=== PATIENT | female | born 1930 | race Caucasian/White ===

== ENCOUNTER 2018-11-13 19:50 | Emergency (ER) | payer OTHER ==
[~2018-11-13] VITALS: Ht 154.9 cm; Wt 59.0 kg
[2018-11-13] MEDS ORDERED: ALLOPURINOL 10100 M1 PO (20:18)
[2018-11-13] MEDS ORDERED: LIPITOR 20 MG T20 M1 PO (20:18)
[2018-11-13] MEDS ORDERED: AMLODIPINE BESY10 MG PO (20:18)
[2018-11-13 20:19] LABS: URINE BILIRUBIN NEGATIVE (Negative); URINE BLOOD NEGATIVE (Negative); URINE CLARITY CLEAR; URINE COLOR YELLOW; URINE GLUCOSE-RANDOM* NEGATIVE (Negative); URINE KETONES NEGATIVE (Negative); URINE LEUKOCYTES-REFLEX NEGATIVE (Negative); URINE NITRITE-REFLEX NEGATIVE (Negative); URINE PROTEIN (DIPSTICK) NEGATIVE (Negative); URINE UROBILINOGEN 0.2 E.U./dl (0.2-1.0)
[2018-11-13] MEDS ORDERED: CALCIUM 600 +1 EAC1 PO (20:19)
[2018-11-13] MEDS ORDERED: BUSPIRONE HCL10 MG PO (20:19)
[2018-11-13] MEDS ORDERED: COZAAR 25 MG TA25 M2 PO (20:20)
[2018-11-13] MEDS ORDERED: MELATONIN3 MG PO (20:20)
[2018-11-13] MEDS ORDERED: LORATIDINE 10 M10 M1 PO (20:20)
[2018-11-13] MEDS ORDERED: SYNTHROID25 MC1 PO (20:20)
[2018-11-13] MEDS ORDERED: CENTRUM SILVER1 EAC4 PO (20:21)
[2018-11-13] MEDS ORDERED: OXCARBAZEPINE300 MG PO (20:21)
[2018-11-13] MEDS ORDERED: TYLENOL325 MG PO (20:21)
[2018-11-13 20:50] LABS: ABSOLUTE NEUTROPHILS 5.8 thou/uL (1.4-8.2); BASOPHILS 0.9 % (0.0-2.0); HEMATOCRIT 40.8 % (37.0-47.0); HEMOGLOBIN 14.1 gm/dL (12.0-15.0); LYMPHOCYTES 13.3 % (24.0-44.0); MCH 34.2 pg (26.0-34.0); MCHC 34.7 g/dL (28.0-37.0); MCV 98.6 fL (80.0-100.0); MONOCYTES 6.5 % (1.0-8.0); PLATELET COUNT 181 thou/uL (150-400); POLYS 78.3 % (36.0-66.0); RBC 4.14 mil/uL (4.20-5.00); RDW 12.8 % (10.5-14.5); WBC 7.4 thou/uL (4.0-11.0)
[2018-11-13 20:55] LABS: CALCIUM 9.5 mg/dL (8.5-10.1); CREATININE 0.6 mg/dL (0.6-1.0)
[2018-11-13 21:00] LABS: ALBUMIN 3.7 g/dL (3.4-5.0); TOTAL BILIRUBIN 0.3 mg/dL (<0.1-1.0); TOTAL PROTEIN 6.7 g/dL (6.4-8.2)
[2018-11-13 21:02] LABS: TROPONIN-I <0.06 ng/mL (<0.06)
[2018-11-13] MEDS ORDERED: FLOMAX0.4 MG PO (21:12)
[2018-11-13] MEDS ORDERED: ZOFRAN ODT4 MG DISSOLVE (21:12)
[2018-11-13] MEDS ORDERED: TORADOL 10 MG T10 MG PO (21:12)
[2018-11-13] MEDS ORDERED: ZOFRAN ODT4 MG PO (22:00)
[2018-11-13] MEDS ORDERED: COLACE100 MG PO (22:00)
[2018-11-13] MEDS ORDERED: NORCO 5-325 TA1 EAC1 PO (22:02)
[2018-11-13 22:24] VITALS: BP 160/72
--- NOTE | 2018-11-13 23:35 | EKG ---
[place] [address] [facility] [place] [address] ELECTROCARDIOGRAM REPORT Name: LUISJESÚS Room #: [facility] Joaquin#: [id number] ������������������ Admission: 11/13/18 ������������������ Attend Phys: Discharge: 11/13/18 ������������������ Date of : 32 Report #: [id number] ����������������������������������������������������������������� [id number] THIS REPORT FOR: //name// [facility] ED Test Date: 2018-11-13 Test Time: 20:43:53 Pat Name: JESÚS SMITH Department: Room: Gender: F Field Support Representative: MEAGHAN : 1930 Requested By: Kaity Bustillo Order Number: [id number] MD: Tal Cruz Measurements Intervals [place] Rate: 66 P: 4 NH: 167 QRS: 9 QRSD: 100 T: 31 QT: 447 QTc: 469 Interpretive Statements Atrial-paced complexes Low voltage, extremity leads Borderline prolonged QT interval No previous ECG available for comparison Electronically Signed On 11-13-2018 23:35:10 CDT by Tal Cruz [email or web address] ��������������������������������������������� <ELECTRONICALLY SIGNED> ���������������������������������������� By: Tal Cruz MD ��������������������������������������������� 11/13/18 2335 2043 42 Tal Cruz MD /NIC
== END 2018-11-13 22:25 | disposition home or self-care (01) ==
LOC: ER 19:50
PROVIDERS: Physician Assistant
DX: K80.20 Calculus of gallbladder without cholecystitis without obstruction (principal); I10 Essential (primary) hypertension; E78.5 Hyperlipidemia, unspecified; E03.9 Hypothyroidism, unspecified; M19.90 Unspecified osteoarthritis, unspecified site; E78.00 Pure hypercholesterolemia, unspecified

== ENCOUNTER 2021-01-26 18:08 | Inpatient (IN) | payer OTHER ==
[~2021-01-26] VITALS: Ht 157.5 cm; Wt 48.6 kg
--- NOTE | ~2021-01-26 | EMS ---
[address] [address] EMS Patient Care Report Name: JESÚS SMITH Room #: 446-P ADM IN M.R.#: [id number] Admission: 01/26/21 Attend Phys: Swapna Orellana MD Discharge: Date of : 31 Report #: [id number] THIS REPORT FOR: //name// Report Transmitted: 01/27/2021 08:51 EMS Care Summary [place], [place]/[facility] Incident [id number] @ 01/26/2021 17:31 Incident Location [address] [place] [address] [address] Patient JESÚS SMITH Female, 89 Years [id number] Patient Address Patient History Chronic Obstructive Pulmonary Disease (COPD),Epilepsy,Hypertension (HTN),Hyperlipidemia,Diverticulitis,Idiopathic Pulmonary Fibrosis (IPF), Patient Allergies No known allergies, Patient Medications Losartan, Loratadine, Amlodipine, Trileptal, Levothyroxine, Allopurinol, Buspirone, Chief Complaint Back Pain Disposition Transported No Lights/[place] Dispatch Reason Back Pain (Non-Traumatic) Transported To [facility] Narrative Arrived on scene to find our patient laying in bed in her apartment in the fdc home. long term staff reported that the patient did have chronic back pain, but on this day she had been unable get up and walk/move around on her own which was extremely unusual for her. long term staff also stated [address] [address] EMS Patient Care Report Name: JESÚS SMITH Room #: 446-[facility] IN ..#: [id number] Admission: 01/26/21 Attend Phys: Swapna Orellana MD Discharge: Date of : 31 Report #: [id number] that the patient had an acute change in mental status with the chronic back pain. The [place] staff seemed to be equally concerned with the AMS and change in back pain. I spoke with the patient's adult daughter who was on scene, the patient's daughter appeared to be significantly more concerned about the patient's back pain than her AMS. Patient was alert to name, but had a significantly altered mental status that she did not know where she was, or why she was being seen my EMS. Patient had no gross trauma or bleeding. Vital signs obtained and patient transported and transferred to receiving facility without change in patient condition. Initial Vitals @18:00P: 102,BP: 184/109,SpO2: 94, @18:01P: 107,BP: 198/96, @18:00P: 100,R: 16,BP: 185/91,GCS: 14,Glucose: 94,CO: 0,SpO2: 94,Revised Trauma: 12, @18:02P: 113,R: 16,BP: 194/108,GCS: 14,SpO2: 96,Revised Trauma: 12, Assessments @17:48MENTAL:Person Oriented,Confused,SKIN:HEENT:Head/Face: No Abnormalities,Neck/Airway: No Abnormalities,LUNG SOUNDS:General: No Abnormalities,ABDOMEN:General: No Abnormalities,PELVIS//GI:No Abnormalities,EXTREMITIES:Left Arm: No Abnormalities,Right Arm: No Abnormalities,Left Leg: No Abnormalities,Right Leg: No Abnormalities,PULSE:NEURO:No Abnormalities, Impression Altered Mental Status Procedures @17:48ALS AssessmentResponse: UnchangedSucceeded Timeline 17:28,Call Received 17:28,Dispatch Notified 17:31,Dispatched 17:31,En Route 17:43,On Scene 17:48,At Patient 17:48,ALS Assessment,Response: UnchangedSucceeded, 17:59,Depart Scene 18:00,BP: 185/91 M,PULSE: 100,RR: 16 R,SPO2: 94 Ox,ETCO2: ,B,PAIN: ,GCS: 14, 18:00,BP: 184/109 M,PULSE: 102,RR: R,SPO2: 94 Ox,ETCO2: ,BG: ,PAIN: ,GCS: , 18:01,BP: 198/96 M,PULSE: 107,RR: R,SPO2: Ox,ETCO2: ,BG: ,PAIN: ,GCS: , 18:02,BP: 194/108 M,PULSE: 113,RR: 16 R,SPO2: 96 Ox,ETCO2: ,BG: ,PAIN: ,GCS: 14, [address] [address] EMS Patient Care Report Name: JESÚS SMITH Room #: 446-P ADM IN M.R.#: [id number] Admission: 01/26/21 Attend Phys: Swapna Orellana MD Discharge: Date of : 31 Report #: [id number] 18:05,At Destination 18:20,Call Closed Disclaimer v1.1 Copyright 2020 [employer] This EMS Care Summary contains data elements from the applicable legal record (which may be displayed differently). It is designed to provide pertinent information for the following purposes: continuity of care, clinical quality, and state data reporting. The complete legal record is available to ED staff and administrators of the receiving hospital in [employer] Patient Tracker. All data is provided "as is."
[2021-01-26 18:08] VITALS: BP 199/90
[~2021-01-26 18:08] MED LIST: ALLOPURINOL 10100 M1 PO; AMLODIPINE BESY10 MG PO; BUSPIRONE HCL10 MG PO; CALCIUM 600 +1 EAC1 PO; CENTRUM SILVER1 EAC4 PO; COLACE100 MG PO; COZAAR 25 MG TA25 M2 PO; FLOMAX0.4 MG PO; LIPITOR 20 MG T20 M1 PO; LORATIDINE 10 M10 M1 PO; MELATONIN3 MG PO; NORCO 5-325 TA1 EAC1 PO; OXCARBAZEPINE300 MG PO; SYNTHROID25 MC1 PO; TORADOL 10 MG T10 MG PO; TYLENOL325 MG PO; ZOFRAN ODT4 MG DISSOLVE; ZOFRAN ODT4 MG PO
[2021-01-26] MEDS ORDERED: LIDODERM1 EACH TOP (19:36)
[2021-01-26 20:45] LABS: ABSOLUTE NEUTROPHILS 4.1 thou/uL (1.4-8.2); EOSINOPHILS 3.2 % (0.0-3.0); HEMOGLOBIN 14.6 gm/dL (12.0-15.0); LYMPHOCYTES 15.1 % (24.0-44.0); MCH 33.2 pg (26.0-34.0); MCHC 33.9 g/dL (28.0-37.0); MCV 97.9 fL (80.0-100.0); MONOCYTES 12.9 % (1.0-8.0); PLATELET COUNT 229 thou/uL (150-400); POLYS 67.8 % (36.0-66.0); RBC 4.39 mil/uL (4.20-5.00); RDW 13.4 % (10.5-14.5); WBC 6.1 thou/uL (4.0-11.0)
[2021-01-26 20:46] LABS: CALCIUM 8.7 mg/dL (8.5-10.1); CREATININE 0.5 mg/dL (0.6-1.0)
[2021-01-26 20:47] LABS: POTASSIUM 4.4 mmol/L (3.5-5.1)
[2021-01-26 21:02] LABS: URINE BILIRUBIN NEGATIVE (Negative); URINE BLOOD NEGATIVE (Negative); URINE CLARITY CLEAR; URINE COLOR YELLOW; URINE GLUCOSE-RANDOM* NEGATIVE (Negative); URINE KETONES NEGATIVE (Negative); URINE LEUKOCYTES-REFLEX NEGATIVE (Negative); URINE NITRITE-REFLEX NEGATIVE (Negative); URINE PROTEIN (DIPSTICK) NEGATIVE (Negative)
[2021-01-26 21:28] VITALS: BP 158/59
[2021-01-26 22:54] VITALS: BP 195/84
[2021-01-27 04:53] VITALS: BP 196/80
[2021-01-27 06:00] LABS: CALCIUM 8.5 mg/dL (8.5-10.1); CREATININE 0.5 mg/dL (0.6-1.0)
[2021-01-27 06:05] LABS: POTASSIUM 3.4 mmol/L (3.5-5.1)
--- NOTE | 2021-01-27 06:09 | NUR ---
RECEIVED CARE OF THIS PATIENT AT 2240 FROM ED. ARRIVED ON UNIT VIA CART ACCOMPANIED BY ED PERSONEL AND SON. PATIENT ALERT AND ORIENTED TO SELF ONLY. IN WITH BACKPAIN BUT DENIES PAIN THIS SHIFT. PULLED IV OUT, REPLACED AND WRAPPED WITH A PROTECTIVE WRAP. SLEPT MOST OF NIGHT.
[2021-01-27 07:37] VITALS: BP 182/89
--- NOTE | 2021-01-27 15:13 | NUR ---
A/O X 1 SELF. ONE ASSIST WITH TRASFERS AND ADLS. HARD OF HEARING. INCONT OF B/B. WEARS PULL UP. RIGHT WRIST IV SALINE LOCKED. NORCO FOR BACK PAIN PRN. FAMILY AT BEDSIDE. MRI SET FOR TOMORROW
--- NOTE | 2021-01-27 15:37 | EKG ---
[address] [employer] [place] [address] ELECTROCARDIOGRAM REPORT Name: JESÚS SMITH Room #: 446- ADM IN M.R.#: [id number] Admission: 01/26/21 Attend Phys: Swapna Orellana MD Discharge: Date of : 31 Report #: [id number] [facility] Test Date: 2021-01-27 Test Time: 15:33:08 Pat Name: JESÚS SMITH Department: Room: 446 Gender: F Review Appraiser: FSCHWALPEGGY : 1930 Requested By: Kathy Yoder Order Number: [id number] MD: Marlo Andrew Measurements Intervals [place] Rate: 70 P: -33 FL: 175 QRS: -6 QRSD: 110 T: 1 QT: 401 QTc: 433 Interpretive Statements Sinus rhythm Inferior infarct, old Compared to ECG 11/13/2018 20:43:53 Myocardial infarct finding now present Atrial-paced complex(es) or rhythm no longer present Electronically Signed On 01-27-2021 15:37:31 CDT by Marlo Andrew [email or web address] <ELECTRONICALLY SIGNED> By: Marlo Andrew MD, [facility] 01/27/21 1537 [id number] 153 Marlo Andrew MD, [facility] /EPI
--- NOTE | 2021-01-27 15:43 | NUR ---
ASSESSMENT: CM REVIEWED CHART AND SPOKE WITH PT. PT IS FROM [facility] AND WAS ADMITTED DUE TO INCREASED BACK PAIN. PER FACILITY THEY DO NO FEEL PATIENT HAS FALLEN OR ARE UNAWARE IF SHE HAS. PT IS FROM [facility]. CM FAXED UPDATED CLINICAL TO [facility]. CM SPOKE WITH PTS RN AT [facility] WHO REPORTS PT NORMALLY AMBULATES WITH A WALKER. CM SPOKE WITH PATIENT AND HER DAUGHTER KARLEY. NEUROSURGERY IS ON THE CASE AND ORTHO. AWAITING MRI TO SEE IF FXS ARE ACUTE. PT MAY REQUIRE KYPHOPLASTY. PER ATTENDING PT MAY BE A CANIDATE FOR 5N OR IF NOT SNF. CM DISCUSSED WITH PT WELL HER DAUGHTER AND THEY ARE AGREEABLE WITH PLAN. THEY PREFER 5N AND IF NOT THEN MAY LOOK INTO [facility] PTS WAREHOUSE PICKER FROM [facility] FOLLOWS AT [facility]. CM WILL CONTINUE TO FOLLOW TO ASSIST NEEDED.
[2021-01-27 16:03] VITALS: BP 117/56
[2021-01-27 19:31] VITALS: BP 138/61
[2021-01-28 04:29] LABS: ABSOLUTE NEUTROPHILS 3.8 thou/uL (1.4-8.2); EOSINOPHILS 3.1 % (0.0-3.0); HEMATOCRIT 42.3 % (37.0-47.0); HEMOGLOBIN 14.3 gm/dL (12.0-15.0); LYMPHOCYTES 13.9 % (24.0-44.0); MCHC 33.8 g/dL (28.0-37.0); MCV 97.6 fL (80.0-100.0); MONOCYTES 11.3 % (1.0-8.0); PLATELET COUNT 210 thou/uL (150-400); POLYS 70.7 % (36.0-66.0); RBC 4.34 mil/uL (4.20-5.00); WBC 5.4 thou/uL (4.0-11.0)
[2021-01-28 04:42] VITALS: BP 143/65
[2021-01-28 04:42] LABS: ALBUMIN 2.7 g/dL (3.4-5.0); CALCIUM 8.4 mg/dL (8.5-10.1); CREATININE 0.7 mg/dL (0.6-1.0); MAGNESIUM 1.8 mg/dL (1.8-2.4); PHOSPHORUS 3.9 mg/dL (2.5-4.9); TOTAL BILIRUBIN 0.4 mg/dL (0.2-1.0); TOTAL PROTEIN 5.6 g/dL (6.4-8.2)
--- NOTE | 2021-01-28 04:42 | NUR ---
ASSUMED CARE OF PT AT 1900. BEDSIDE REPORT RECIEVED. MADAN ASSESSMENT COMPLETE. PT AOX1 TO SELF. PROVIDED REORORIENTATION TO ROOM, HOSPITAL AND SITUATION. R WRIST PIV CDI, PATENT AND SALINE LOCKED. NPO AT MIDNIGHT PER ORDERS. PROVIDED PT EDUCATION ON NPO STATUS. REPOSITIONING Q2 HURS FOR COMFORT. ALL NEEDS MET CALL LIGHT IN REACH
[2021-01-28 04:47] LABS: POTASSIUM 4.6 mmol/L (3.5-5.1)
--- NOTE | 2021-01-28 08:11 | NUR ---
I CONCUR WITH THE NOTE AND ASSESSMENT BY VERONICA DENSON.
[2021-01-28 09:03] VITALS: BP 152/66
--- NOTE | 2021-01-28 13:48 | NUR ---
ON-GOING ASSESSMENT: CM REVIEWED CHART AND SPOKE WITH ATTENDING. MRI IS PENDING AT THIS TIME BUT PT MAY REQUIRE VERTEBROPLASTY VS KYPHOPLASTY. 5N IS FOLLOWING AND PT WAS EVALUATED AND IS A CANIDATE BUT WILL NEED INSURANCE AUTH PRIOR TO GOING TO 5N. CM ALSO FAXED REFERRAL TO [facility] A BACK UP PLAN IF INSURANCE DOES NOT AUTH 5N ( THIS IS DAUGHTERS FIRST CHOICE SINCE RECONCILIATION ACCOUNTANT FROM [facility] FOLLOWS AT [facility]). [facility] RECEIVED REFERRAL AND WILL AWAIT INPUT IF PATIENT IS ACCEPTED TO 5N. CM WILL CONTINUE TO FOLLOW TO ASSIST NEEDED.
--- NOTE | 2021-01-28 15:05 | NUR ---
PATIENT CAN ADMIT TO REHAB IF PATIENT HAS FUNCTIONAL DEFICITS AND IS MEDICALLY CLEARED. WILL NEED AUTHORIZATION FROM INSURANCE. NO PT EVALUATION YET AND OTHER TESTING YET TO BE COMPLETED. IF APPROPRIATE WILL PLAN TO REQUEST AUTH ON 01/31/21. MICAH ANAYA INFORMED OF REASON FOR DELAY IN REQUESTING AUTHORIZATION.
--- NOTE | 2021-01-28 15:51 | NUR ---
A/O X 1 SELF-FORGETFUL, ROOM AIR. ONE ASSIST WITH TRANSFERS AND ADLS. USES BEDSIDE COMMODE WITH WALKER. BACK PAIN NORCO GIVEN PRN. DAUGHTER KARLEY AT BEDSIDE.
--- NOTE | 2021-01-29 02:43 | NUR ---
ASSUMED CARE OF PT AT 1930. REPORT RECIEVED. GRANDSON AT BEDSIDE. PROVIDED PT EDUCATION FOR GRANDSON. PT AOXTO SELF. MADAN ASSESSMENT COMPLETE. PROVIDEDE REORIENTATON TO PATIETN D/T CONFUSION AND FORGETFULNES. RESECURED R HAND PIV C COBAND. IVF INFUSING. MEDS GIVEN ORDERED. D/T PATIENT HAVING POOR APPETITE, ADMINISTERED MEDS C PUDDING, PT ATE ALL OF PUDDING, DRANK APPLE JUICE. REPOSITIONED FOR COMFORT. HOURLY ROUNDING ONGOING. CALL LIGHT IN REACH.
[2021-01-29 07:58] VITALS: BP 195/81
--- NOTE | 2021-01-29 13:41 | NUR ---
ASSUMED PT CARE AROUND 0700. PT A X O 2-3. ON ROOM AIR, NON IMPULSIVE, HARD OF HEARING.IV RT HAND/ D5 HALF NS/ 75MLS/HR. TAKE MEDS PO. NO CODE. HAD A BM TODAY.PT'S FAMILY IN THE ROOM. PAIN PARTIALLY CONTROLLED BY PAIN MEDS. FALL PRECT IN PLACE. REPOSITIONING DOING Q X 2HRS. WILL CONT TO MONITOR.
[2021-01-29 15:28] VITALS: BP 157/51
--- NOTE | 2021-01-30 05:34 | NUR ---
PT IS A/O X3 AND IS UP WITH ASSISTANCE. C/O LOWER BACK PAIN. LIDOCAINE PATCH APPLIED TO LOWER BACK. MEDICATION GIVEN PER JUN. PT PLEASANT AND COOPERATIVE. VSS. AFEBRILE. FALL PRECAUTIONS IN PLACE, CALL LIGHT IS WITHIN REACH. WILL CONTINUE TO MONITOR.
[2021-01-30 05:39] VITALS: BP 181/74
[2021-01-30 08:53] VITALS: BP 160/59
[2021-01-30 16:26] LABS: ABSOLUTE NEUTROPHILS 4.5 thou/uL (1.4-8.2); BASOPHILS 0.8 % (0.0-2.0); EOSINOPHILS 3.8 % (0.0-3.0); HEMATOCRIT 37.9 % (37.0-47.0); HEMOGLOBIN 13.1 gm/dL (12.0-15.0); LYMPHOCYTES 11.8 % (24.0-44.0); MCH 33.3 pg (26.0-34.0); MCHC 34.7 g/dL (28.0-37.0); MONOCYTES 9.9 % (1.0-8.0); PLATELET COUNT 202 thou/uL (150-400); POLYS 73.7 % (36.0-66.0); RBC 3.95 mil/uL (4.20-5.00); WBC 6.1 thou/uL (4.0-11.0)
[2021-01-30 17:00] LABS: ALBUMIN 2.4 g/dL (3.4-5.0); CALCIUM 8.2 mg/dL (8.5-10.1); CREATININE 0.6 mg/dL (0.6-1.0); MAGNESIUM 1.6 mg/dL (1.8-2.4); POTASSIUM 3.9 mmol/L (3.5-5.1); TOTAL BILIRUBIN 0.2 mg/dL (0.2-1.0); TOTAL PROTEIN 4.9 g/dL (6.4-8.2)
[2021-01-30 17:13] VITALS: BP 160/50
[2021-01-30 19:37] VITALS: BP 129/58
[2021-01-30 22:54] VITALS: BP 129/58
[2021-01-31 00:50] VITALS: BP 132/56
[2021-01-31 04:41] VITALS: BP 156/69
--- NOTE | 2021-01-31 05:17 | NUR ---
UPON SHIFT REPORT, PT SLEEPING. PT DAUGHTER KARLEY NOTIFIED UNIT REQUESTING UPDATE ON PT MEDICATIONS. DISCUSSED PT MEDICATIONS WITH KARLEY, NO FURTHER CONCERNS EXPRESSED. UPON SHIFT ASSESSMENT, PT AWAKE, NOTABLY DROWSY. PT AOX1, TO PERSON, REPORTING DAYTIME IN REGARDS TO TIME AND HOME IN REGARDS TO PLACE, UNABLE TO ASCERTAIN PT RESPONSE REGARDING SITUATION. PT REPORTS 8/10 PAIN IN BACK. PT RECEIVING PRN PO NORCO Q4HR, PT SLEEPING DURING SCHEDULED TIMES FOR PO NORCO Q8HR. PT HAS PRN PO APAP Q4HR AVAILABLE. PT DENIES SOB WHILE ON ROOM AIR. PT TOLERATING PO INTAKE OF FLUIDS AND HEART HEALTHY DIET WITHOUT ISSUE. PT WITHOUT NAUSEA OR EMESIS. PT VOIDING PER BEDSIDE COMMODE WITH X1 ASSIST AND WALKER. PT RESTING IN BED OTHERWISE. PT NOTED TO SHIFT INDEPENDENTLY, REFUSING REPOSITIONING ASSISTANCE. SENSATION INTACT, CAPILLARY REFILL LESS THAN 3SEC, PERIPHERAL PULSES PALPABLE IN ALL EXTREMITIES. PT ENCOURAGED TO NOTIFY STAFF FOR ALL NEEDS, CALL LIGHT WITHIN REACH, BED ALARM ON, BED LOCKED IN LOWEST POSITION, ROOM REMAINS NEAR NURSES STATION, FREQUENT MONITORING WILL CONTINUE.
[2021-01-31 05:37] LABS: ABSOLUTE NEUTROPHILS 3.3 thou/uL (1.4-8.2); BASOPHILS 0.9 % (0.0-2.0); HEMOGLOBIN 12.9 gm/dL (12.0-15.0); LYMPHOCYTES 16.9 % (24.0-44.0); MCH 32.4 pg (26.0-34.0); MCHC 32.9 g/dL (28.0-37.0); MCV 98.5 fL (80.0-100.0); MONOCYTES 10.4 % (1.0-8.0); PLATELET COUNT 209 thou/uL (150-400); POLYS 65.8 % (36.0-66.0); RBC 3.96 mil/uL (4.20-5.00); RDW 13.2 % (10.5-14.5)
[2021-01-31 05:47] LABS: PROTIME 10.9 Seconds (10.5-12.1)
[2021-01-31 05:58] LABS: CREATININE 0.5 mg/dL (0.6-1.0); MAGNESIUM 1.7 mg/dL (1.8-2.4); PHOSPHORUS 4.1 mg/dL (2.5-4.9); POTASSIUM 4.4 mmol/L (3.5-5.1)
[2021-01-31 07:50] VITALS: BP 146/54
[2021-01-31 16:06] VITALS: BP 180/63
[2021-01-31 19:35] VITALS: BP 146/79
[2021-02-01] VITALS (7 sets, daily range): BP systolic 141–186; BP diastolic 72–100
--- NOTE | 2021-02-01 08:10 | NUR ---
RECEIVED CARE OF THIS PATIENT AT 1900. PATIENT ALERT AND ORIENTED XSELF ONLY. HAS TWO BANDAIDS ON BACK THAT IS D/I. REMAINS ON BEDREST BUT TURNS BY SELF VERY GOOD. D/T POCKETING MEDS ALL MEDS NEED TO BE CRUSHED AND PUT IN SOMETHING. PATIENT VERY HAPPY TO SEE PEOPLE AND READILY TAKES MEDS. ALL NIGHT PATIENT DENIED PAIN BUT WHEN IT WAS TIME FOR HER SCHEDULED PAIN MED SHE DID SAY SHE WAS IN PAIN. ASKED HER TO BE SURE AND LET THE NURSES KNOW WHEN SHE IS IN PAIN SO WE CAN TAKE CARE OF IT. SHE AGREED TO DO THAT. SLEPT OFF AND ON DURING NIGHT.
--- NOTE | 2021-02-01 14:31 | NUR ---
5N CONSULT RECEIVED AND Pt WAS SEEN BY NAZANIN BAIRD NP ON 01/28/21. Pt MEETS CRITERIA FOR ACUTE REHAB. Pt UNDERWENT KYPHOPLASTY ON 01/31/21. THIS DIRECTOR OF ACCOUNTS PAYABLE CALLED [facility] TO START AUTHORIZATION PROCESS FOR ACUTE REHAB TODAY. KRISTI Narayan/ LUCI Garcia AUTHORIZATION PENDING REVIEW UNDER AUTH #[id number]. WILL SUBMIT CLINICAL INFO WHEN REQUESTED BY [facility].
--- NOTE | 2021-02-01 15:30 | NUR ---
gregory notified that family had question. Gregory spoke with crystal #[phone]. question about adding brother and sister to DPOA. Cm provided education and notified house sup to see if candi is here for notary. 5N seek auth for acute rehab. Gregory spoke with daughter crystal about back up, referral to be sent to [facility].
--- NOTE | 2021-02-01 15:42 | NUR ---
CARE ASSUMED THIS AM, PT ALERT AND ORIENTED X1-2, DENIES ANY CHEST PAIN, NUMBNESS OR TINGLING. PT HAD BACK SURGERY, A COUPLE BANDAID ON HER LOWER EDUARDO. SCHEDULE PAIN MED GIVEN PER ORDER, PT STATES HER PAIN IS CONTROLLED. IVF RUNNING PER ORDER. PT WAS UP IN THE CHAIR FOR A COUPLE HOURS, MODERATE ASSIST. PT FAMILY HERE, UPDATED ABOUT CARE. FAMILY WANTED TO TALK TO CM, CM MADE AWARE. PT INCONTINENT OF B&B, CHANGED NEEDED. FALL PRECAUTION IN PLACE.
[2021-02-02 04:35] VITALS: BP 166/82
--- NOTE | 2021-02-02 07:22 | NUR ---
RECEIVED CARE OF THIS PATIENT AT 1900. PATIENT ALERT AND ORIENTED TO SELF ONLY. UP TO BSC WITH ASSIST. C/O BACK PAIN. MED GIVEN. MEDS CRUSHED IN PUDDING. SLEPT MOST OF NIGHT.
[2021-02-02 08:12] VITALS: BP 167/75
--- NOTE | 2021-02-02 11:46 | NUR ---
B12 level 212-recommend start supplementation
--- NOTE | 2021-02-02 12:10 | NUR ---
Case discussed with the care team. Auth pending for 5N acute rehab. No response from insurance yet today. SNF referral faxed to [facility] should they deny. ST to eval bedside swallow at 1 today d/t coughing with medications.
[2021-02-02 15:58] VITALS: BP 148/78
[2021-02-02 19:55] VITALS: BP 144/77
--- NOTE | 2021-02-03 02:42 | NUR ---
PT IS A/O X1 AND IS COOPERATIVE AND PLEASANT. IS UP WITH ASSISTANCE X1 TO THE BSC. WEARS PULLUPS FOR STRESS INCONTINENCE. VSS. AFEBRILE. MEDICATIONS GIVEN DIRECTED. C/O BACK PAIN. SCHEDULED PAIN MEDICATION GIVEN DIRECTED. FALL PRECAUTIONS IN PLACE, CALL LIGHT IS WITHIN REACH. WILL CONTINUE TO MONITOR.
[2021-02-03 03:51] VITALS: BP 141/72
[2021-02-03 08:15] VITALS: BP 186/82
--- NOTE | 2021-02-03 10:25 | NUR ---
A/O X 1 SELF. ROOM AIR. RIGHT FOREARM IV WITH D5 0.45 NS INFUSING @ 100 MLS/HR. ST EVAL TODAY- PASSED, NO COUGHING. D/C TODAY TO 5N OR [facility]. PENDING. DAUGHTER AT BEDSIDE.
--- NOTE | 2021-02-03 15:12 | NUR ---
Followup dc planning visit made with pt and her two dtrs at bedside. All parties still awaiting ins response for 5N acute rehab request which is being reviewed by the medical social consultant of [facility]. Dtrs are meeting with the liason from [facility] this afternoon should acute rehab be denied. Pt is dc ready.
[2021-02-03 15:26] VITALS: BP 171/80
[2021-02-04 00:23] VITALS: BP 154/66
--- NOTE | 2021-02-04 03:12 | NUR ---
PT IS A/O X1 AND IS UP WITH ASSISTANCE X1 TO THE BSC. ROOM AIR. BP ELEVATED. SCHEDULED HYDRALAZINE GIVEN DIRECTED. MEDICATIONS GIVEN PER JUN. C/O LOWER BACK PAIN. SCHEDULED PAIN MEDICATION GIVEN. FALL PRECAUTIONS IMPLEMENTED, CALL LIGHT IS WITHIN REACH.
[2021-02-04 06:08] VITALS: BP 177/76
[2021-02-04 07:43] VITALS: BP 180/74
--- NOTE | 2021-02-04 10:35 | NUR ---
A/O X 1 SELF. ROOM AIR. ONE ASSIST WITH WALKER. NO IV. BEDSIDE COMMODE. MEDS HAD TO BE CRUSHED THIS MORNING AND PUT IN APPLESAUCE TOLERATE TAKING THE PILLS. NO COUGHING DURING TAKING PILLS. DAUGHTER AT BEDSIDE. PT WORKED WITH HER. POSSIBLE D/C TO [facility] TODAY.
[2021-02-04 15:25] VITALS: BP 146/62
--- NOTE | 2021-02-04 16:33 | NUR ---
AWAITING AUTH FOR ADMISSION TO [facility]. CONTACT [facility] TO CHECK STATUS OF AUTH AT AND TO FACILITATE DISCHARGE. ONCE RECEIVED FAX ORDERS TO .
--- NOTE | 2021-02-04 17:25 | NUR ---
RETURNED CALL TO DTR KARLEY DPOA & UPDATE THAT AUTH WAS NOT RECEIVED YET FOR SKILLED AT [facility]. DTR AWARE ACUTE REHAB WAS DENIED.
[2021-02-04 20:26] VITALS: BP 144/60
--- NOTE | 2021-02-05 05:00 | NUR ---
ASSUMED CARE OF PT AT 1900. BEDSIDE REPORT RECEIVED. MADAN ASSESSMENT COMPLETE. SCHEDULED MEDS AND PAIN MEDS ADMINISTERD. LIDOCAINE PATCH REMOVED. ASSISTED PT TO BSC C X1 ASSIST. REFILLED WATER. NEW BRIEF ON PT, BARRIER CREAM APPLIED. NOTFIED STEEL ROLLER OF NO IV ACCESS AND PER STEEL ROLLER NO NEED TO OBTAIN IV ACCESS. HOURLY ROUNDING CONTINUING. CALL LGT IN REACH
[2021-02-05 07:58] VITALS: BP 157/62
[2021-02-05 11:04] VITALS: BP 137/49
--- NOTE | 2021-02-05 11:23 | NUR ---
ASSUMED PT CARE THIS AM. PT IS ALERT & ORIENTED X2 TO PERSON AND TIME. PT USES GAITBELT AND WALKER TO THE BEDSIDE COMMODE. PT HAS BM TODAY. PT HAS NO IV SITE. PT TOLERATED DIET AND MEDICATION WELL. PT IS ON ROOM AIR. PT FAMILY AT THE BEDSIDE. INFORMED DR THAT PT INSURANCE AUTH HAS BEEN APPROVED PER CM. AWAITING FOR DC ORDERS.
[2021-02-05 11:27] VITALS: BP 137/49
--- NOTE | 2021-02-05 12:06 | NUR ---
PER BALA AT [facility], AUTH HAS BEEN OBTAINED AND CAN ACCEPT AT 3 PM TODAY. CALLED FLOOR AND SPOKE TO NURSE, PATIENT IS WHEEL CHAIR VAN APPROPRIATE, NO O2. FAXED UPDATED INFO TO BALA FOR DISCHARGE, INCLUDING D/C SUMMARY AND ORDERS. SPOKE WITH ANGELIQUE THE US, SHE IS AWARE THAT PATIENT WILL LEAVE VIA WHEEL CHAIR VAN PROVIDED BY ABDIEL/BALA SETTING UP.
== END 2021-02-05 16:30 | DRG 515 ==
LOC: ER 18:08 → 4S 20:34 → EROBS 20:34 → 4S 22:30
PROVIDERS: Emergency Medicine; Internal Medicine; Nurse Practitioner Family; ADMIT Hospitalist; ATTEND Hospitalist
DX: M48.55XA Collapsed vertebra, not elsewhere classified, thoracolumbar region, initial encounter for fracture (principal); E43 Unspecified severe protein-calorie malnutrition; Z68.1 Body mass index [BMI] 19.9 or less, adult; M19.90 Unspecified osteoarthritis, unspecified site; F03.90 Unspecified dementia, unspecified severity, without behavioral disturbance, psychotic disturbance, mood disturbance, and anxiety; I49.5 Sick sinus syndrome; G40.909 Epilepsy, unspecified, not intractable, without status epilepticus; M54.9 Dorsalgia, unspecified; E87.6 Hypokalemia; R39.81 Functional urinary incontinence; I10 Essential (primary) hypertension; E78.5 Hyperlipidemia, unspecified; E03.9 Hypothyroidism, unspecified; G89.29 Other chronic pain; F41.9 Anxiety disorder, unspecified; Z66 Do not resuscitate; R53.81 Other malaise; M81.0 Age-related osteoporosis without current pathological fracture; M51.36 Other intervertebral disc degeneration, lumbar region; J44.9 Chronic obstructive pulmonary disease, unspecified; E53.8 Deficiency of other specified B group vitamins; Z20.822 Contact with and (suspected) exposure to COVID-19; Z95.0 Presence of cardiac pacemaker; Z28.21 Immunization not carried out because of patient refusal
CPT/HCPCS: 10195